=== PATIENT | male | born 1980 | race Caucasian/White ===

== ENCOUNTER 2018-01-01 23:55 | Emergency (ER) | payer OTHER ==
--- NOTE | 2018-01-02 00:15 | EDM.PDOC ---
ED HPI GENERAL MEDICAL PROBLEM - General Chief Complaint: General Stated Complaint: LT EYE SWOLLEN Time Seen by Provider: 01/02/18 00:12 Source of Information: Reports: Patient History Limitations: Reports: No Limitations - History of Present Illness INITIAL COMMENTS - FREE TEXT/NARRATIVE: HISTORY AND PHYSICAL: History of present illness: 37-year-old male presenting emergency department with chief complaint of left eye swelling and irritation 3 days. Patient states that on Monday he noticed some mild eyelid swelling and irritation to his left eye. Tonight after he woke up from a nap he noticed that there was significant increase in swelling to the lower eyelid. Denies any purulent discharge or changes in vision. Denies foreign body or injury to the left eye including bee sting. Has never had this happen before. States irritation is like his eye is dry and itchy. Currently well otherwise. Fluorescein exam unremarkable Review of systems: As per history of present illness and below otherwise all systems reviewed and negative. Past medical history: As per history of present illness and as reviewed below otherwise noncontributory. Surgical history: As per history of present illness and as reviewed below otherwise noncontributory. Social history: No reported history of drug or alcohol abuse. Family history: As per history of present illness and as reviewed below otherwise noncontributory. Physical exam: HEENT: mild injection of the sclera. Atraumatic, normocephalic, pupils reactive , negative for conjunctival pallor or scleral icterus, mucous membranes moist, throat clear, neck supple, nontender, trachea midline. Lungs: Clear to auscultation, breath sounds equal bilaterally, chest nontender. Heart: S1S2, regular, negative for clicks, rubs, or JVD. Abdomen: Soft, nondistended, nontender. Negative for masses or hepatosplenomegaly. Negative for costovertebral tenderness. Pelvis: Stable nontender. Genitourinary: Deferred. Rectal: Deferred. Extremities: Atraumatic, negative for cords or calf pain. Neurovascular unremarkable. Neuro: Awake, alert, oriented. Cranial nerves II through XII unremarkable. Cerebellum unremarkable. Motor and sensory unremarkable throughout. Exam nonfocal. Diagnostics: Therapeutics: Proparacaine Fluorescein Flush Impression: Eye irritation atopical vs foreign body lower eyelid swelling Plan: We did a fluorescein and flushed the patients left eye. I did appreceate a stye under the left eyelid that I was able to remove with a q-tip otherwise fluorescein examine was unremarkable. Patient tolerated procedure well and I discharged him after talking with Dr. Adam and he is going to follow-up with him tomorrow am at the Opthamology clinic at 1:30 PM. Definitive disposition and diagnosis as appropriate pending reevaluation and review of above. left lower lid Pain Score (Numeric/FACES): 1 - Related Data Allergies Allergy/AdvReac Type Severity Reaction Status Date / Time No Known Allergies Allergy Verified 01/01/18 23:59 Home Meds: Home Meds . [No Known Home Meds] 01/01/18 [History] Social & Family History - Family History Family Medical History: Noncontributory ED ROS GENERAL - Review of Systems Review Of Systems: ROS reveals no pertinent complaints other than HPI. ED EXAM, GENERAL - Physical Exam Exam: See Below Course - Vital Signs Last Recorded V/S: Last Vital Signs Temp 98 F 01/01/18 23:55 Pulse 91 01/01/18 23:55 Resp 18 01/01/18 23:55 BP 174/103 H 01/01/18 23:55 Pulse Ox 99 01/01/18 23:55 - Orders/Labs/Meds Meds: Medications Discontinued Medications Generic Name Dose Route Start Last Admin Trade Name Freq PRN Reason Stop Dose Admin Proparacaine HCl 1 ml 01/02/18 00:18 01/02/18 00:24 Proparacaine 0.5% Ophth Soln EYELF 01/02/18 00:19 1 ml NOW STA Administration Departure - Departure Time of Disposition: 00:46 Disposition: Home, Self-Care 01 Condition: Good Clinical Impression: Irritation of left eye - Discharge Information Referrals: PCP,None [Primary Care Provider] - Forms: ED Department Discharge Additional Instructions: My general discharge The following information is given to patients seen in the emergency department who are being discharged to home. This information is to outline your options for follow-up care. We provide all patients seen in our emergency department with a follow-up referral. The need for follow-up, as well as the timing and circumstances, are variable depending upon the specifics of your emergency department visit. If you don't have a primary care physician on staff, we will provide you with a referral. We always advise you to contact your personal physician following an emergency department visit to inform them of the circumstance of the visit and for follow-up with them and/or the need for any referrals to a consulting specialist. The emergency department will also refer you to a specialist when appropriate. This referral assures that you have the opportunity for follow-up care with a specialist. All of these measure are taken in an effort to provide you with optimal care, which includes your follow-up. Under all circumstances we always encourage you to contact your private physician who remains a resource for coordinating your care. When calling for follow-up care, please make the office aware that this follow-up is from your recent emergency room visit. If for any reason you are refused follow-up, please contact the [facility] Emergency Department at and asked to speak to the emergency department charge nurse. As we discussed follow-up with ophthalmology tomorrow at 1:30 Dr. Adam. Return to emergency department if any new or worsening symptoms.
[2018-01-02] MEDS ORDERED: Proparacaine 0.5% Ophth Soln 15 ML Bottle EYELF STA (00:18)
== END 2018-01-02 01:00 | disposition home or self-care (01) ==
LOC: MW.ED 23:55
DX: H02.845 Edema of left lower eyelid (principal); H57.8 Other specified disorders of eye and adnexa
CPT/HCPCS: 99283